=== PATIENT | female | born 1950 | race Caucasian/White ===

== ENCOUNTER → 2020-03-11 11:04 | Outpatient (CLI) | payer OTHER, SELFPAY ==
--- NOTE | ~2020-03-11 | MM_ITS ---
EXAMINATION: MM scrn kenroy implant BI w novlia HISTORY: Screening mammogram TECHNIQUE: Craniocaudal and mediolateral oblique 3-D tomosynthesis images with implant displacement a nd synthetic 2-D images were generated. Craniocaudal and mediolateral oblique views of the breasts wi thout implant displacement were obtained using full field digital mammography. CAD analysis was submi tted and interpreted. COMPARISON: 01/30/2019, 10/30/2018, 10/25/2016 BREAST PARENCHYMAL COMPOSITION: The breasts are almost entirely fatty. FINDINGS: There is no evidence of suspicious mass, calcification, or architectural distortion to sugg est malignancy in either breast. There has been no suspicious interval change. IMPRESSION: 1. No mammographic evidence of malignancy. 2. Recommend routine screening mammography in one year. BI-RADS Category 1: Negative Reviewed, dictated and finalized at location A.
== END ==
PROVIDERS: PCP Emergency Medicine; Visit Provider Nurse Practitioner
DX: Z12.31 Encounter for screening mammogram for malignant neoplasm of breast (principal)
CPT/HCPCS: 77063; 77067

== ENCOUNTER → 2020-05-01 15:13 | Outpatient (REF) | payer OTHER, SELFPAY | LOC: ANHLAB 15:13 | PROVIDERS: PCP Emergency Medicine; Visit Provider Surgery Plastic and Reconstructive Surgery | DX: L72.0 Epidermal cyst (principal) | CPT/HCPCS: 88304 ==

== ENCOUNTER → 2021-03-13 13:14 | Outpatient (CLI) | payer OTHER, SELFPAY ==
--- NOTE | ~2021-03-13 | MM_ITS ---
EXAMINATION: MM scrn kenroy implant BI w nolvia HISTORY: Screening mammogram TECHNIQUE: Craniocaudal and mediolateral oblique 3-D tomosynthesis images with implant displacement a nd synthetic 2-D images were generated. Craniocaudal and mediolateral oblique views of the breasts wi thout implant displacement were obtained using full field digital mammography. CAD analysis was submi tted and interpreted. COMPARISON: Comparison to multiple prior studies sequentially, with oldest reviewed study dated 10/23. BREAST PARENCHYMAL COMPOSITION: There are scattered areas of fibroglandular density. FINDINGS: There is no evidence of suspicious mass, calcification, or architectural distortion to sugg est malignancy in either breast. There has been no suspicious interval change. IMPRESSION: 1. No mammographic evidence of malignancy. 2. Recommend routine screening mammography in one year. BI-RADS Category 1: Negative Reviewed, dictated and finalized at location A.
== END ==
PROVIDERS: Visit Provider Nurse Practitioner
DX: Z12.31 Encounter for screening mammogram for malignant neoplasm of breast (principal)
CPT/HCPCS: 77063; 77067

== ENCOUNTER → 2021-05-13 13:16 | Outpatient (CLI) | payer OTHER, SELFPAY ==
--- NOTE | ~2021-05-13 | DEXA_ITS ---
Bone Density Report Name: AIYANA TYLER Age: 71 Sex: Female Ethnicity: White Date of : 1950 Indication: postmenopausal; screening for osteoporosis; height loss; Referring Provider: MEE LE Study: Bone densitometry was performed. Exam Date: May 13, 2021 Accession number: [id number] Bone Density: Region BMD T-score Z-score Classification AP Spine (L1, L2) 1.360 3.5 5.4 Normal World Health Organization criteria for BMD impression classify patients as: Normal (T-score at or above -1.0), Osteopenia (T-score between -1.0 and -2.5), or Osteoporosis (T-score at or below -2.5). Previous Exams: Region Exam Age BMD T-score BMD Change BMD Change Date g/cm2 vs Baseline vs Previous AP Spine(L1, L2) 05/13/2021 71 1.360 3.5 -0.037* -0.025* 11/08/2017 67 1.385 3.7 -0.012 -0.012 08/29/2012 62 1.397 3.8 *Denotes significance at 95% confidence level, LSC for AP Spine = 0.022 g/cm2 Clinical Information Provided by Patient: Has used the following medications: Vitamin D, Calcium Patient maximum height was 66 Menopause Age: 54 Drinks caffeinated beverages Onset of menses at age 11 Number of children 0 Impression: The patient has normal bone mass. The BMD for the AP Spine(L1, L2) decreased, changing by -0.025 since the last DXA exam. Discussion: LOW RISK OF FRACTURE; BONE DENSITY IS WELL ABOVE THE MINIMUM DESIRABLE LEVEL AND ABOVE AVERAGE FOR AGE AND SEX AT ALL SKELETAL SITES TESTED. This person's bone density is above expected limits for age and sex. This is rarely clinically significant, but should be pursued if there are significant musculoskeletal complaints. The patient should follow a healthful lifestyle (good nutrition with adequate calcium and vitamin D, and appropriate weight-bearing exercise). Follow-Up: Consider repeating this study in 3 to 4 years to reassess this patient's status, or sooner if there is some new clinical indication. Reported by: NICOLE on 05/13/2021 1:24:00 PM. Reviewed, dictated and finalized at location A. [facility]
== END ==
PROVIDERS: PCP Emergency Medicine; Visit Provider Emergency Medicine
DX: Z78.0 Asymptomatic menopausal state (principal)
CPT/HCPCS: 77080

== ENCOUNTER → 2021-12-10 14:09 | Outpatient (CLI) | payer OTHER, SELFPAY ==
--- NOTE | ~2021-12-10 | US_ITS ---
US thyroid INDICATION: Thyroid goiter TECHNIQUE: Real-time sonographic images of the thyroid gland were obtained. COMPARISON: No prior studies for comparison. FINDINGS: The right thyroid lobe measures 5.1 x 2.5 x 2.3 cm. The left thyroid lobe measures 6.5 x 3 x 2.5 cm. There is normal echotexture and echogenicity throughout the thyroid gland. There are multi ple bilateral thyroid nodules. There is normal vascularity. Largest dominant nodule in the right lobe measures 6 x 6 x 4 mm which is solid, hypoechoic with macrocalcifications and posterior shadowing. I ll-defined margins. Mass is wider than tall, TR 4 classification. This mass does not meet sonographic criteria for biopsy. In the left lobe there is a complex mixed solid and cystic mass which is slight ly hypoechoic measuring 2.5 x 2.4 x 1.6 cm, wider than tall, irregular margins without associated raj cification, TR 4. Multiple additional smaller masses are identified in both lobes, most likely multin odular goiter. IMPRESSION: 1. Complicated left thyroid mass measuring up to 2.5 cm, TR 4. Ultrasound-guided fine-needle aspirat ion biopsy recommended. Reviewed, dictated and finalized at location A. IMPRESSION: 1. Complicated left thyroid mass measuring up to 2.5 cm, TR 4. Ultrasound-guid ed fine-needle aspiration biopsy recommended.
== END ==
PROVIDERS: PCP Emergency Medicine; Visit Provider Emergency Medicine
DX: E04.9 Nontoxic goiter, unspecified (principal)
CPT/HCPCS: 76536

== ENCOUNTER 2021-12-25 09:08 | Outpatient (CLI) | payer OTHER, SELFPAY ==
--- NOTE | ~2021-12-25 | US_ITS ---
EXAMINATION: US FNA w image guidance DATE: 12/25/2021 10:35 INDICATION: Disorder of thyroid, unspecified. TECHNIQUE: The procedure and its benefits and risks were discussed with the patient. Risks specifically discusse d included bleeding. The patient verbalized understanding of the risks and agreed to proceed. The nec k was prepped and draped in the usual sterile manner. 1% lidocaine was used for local anesthesia. 6 passes were made with a 25G needle into the lesion under ultrasound guidance. There were no immedia te complications. FINDINGS: Grayscale ultrasound images demonstrate needles advanced into a 2.5 cm left thyroid nodule for biopsy . IMPRESSION: 1. Ultrasound-guided fine needle aspiration of a left thyroid nodule. Reviewed, dictated and finalized at location A.
== END 2021-12-25 09:09 | disposition home or self-care (01) ==
PROVIDERS: PCP Emergency Medicine; Visit Provider Emergency Medicine
DX: E07.9 Disorder of thyroid, unspecified (principal)
CPT/HCPCS: 10005; 88173; 88305

== ENCOUNTER → 2022-03-15 10:39 | Outpatient (CLI) | payer OTHER, SELFPAY ==
--- NOTE | ~2022-03-15 | MM_ITS ---
EXAMINATION: MM scrn kenroy implant BI w nolvia HISTORY: Screening mammogram TECHNIQUE: Craniocaudal and mediolateral oblique 3-D tomosynthesis images with implant displacement a nd synthetic 2-D images were generated. Craniocaudal and mediolateral oblique views of the breasts wi thout implant displacement were obtained using full field digital mammography. CAD analysis was submi tted and interpreted. COMPARISON: 03/13/2021, 03/11/2020, 01/30/2019 BREAST PARENCHYMAL COMPOSITION: The breasts are almost entirely fatty. FINDINGS: There is no evidence of suspicious mass, calcification, or architectural distortion to sugg est malignancy in either breast. There has been no suspicious interval change. IMPRESSION: 1. No mammographic evidence of malignancy. 2. Recommend routine screening mammography in one year. BI-RADS Category 1: Negative Reviewed, dictated and finalized at location A.
== END ==
PROVIDERS: PCP Emergency Medicine; Visit Provider Nurse Practitioner
DX: Z12.31 Encounter for screening mammogram for malignant neoplasm of breast (principal)
CPT/HCPCS: 77063; 77067

== ENCOUNTER 2023-01-03 08:00 | Outpatient (NON) | payer OTHER, SELFPAY | END 2023-01-03 08:01 | disposition home or self-care (01) | LOC: ANHLAB 01-05 13:23 | PROVIDERS: PCP Emergency Medicine; Visit Provider Nurse Practitioner | DX: D49.2 Neoplasm of unspecified behavior of bone, soft tissue, and skin (principal) | CPT/HCPCS: 88305 ==

== ENCOUNTER → 2023-04-15 11:09 | Outpatient (CLI) | payer OTHER, SELFPAY ==
--- NOTE | ~2023-04-15 | MM_ITS ---
EXAMINATION: MM scrn kenroy implant BI w nolvia HISTORY: Screening mammogram TECHNIQUE: Craniocaudal and mediolateral oblique 3-D tomosynthesis images with implant displacement a nd synthetic 2-D images were generated. Craniocaudal and mediolateral oblique views of the breasts wi thout implant displacement were obtained using full field digital mammography. CAD analysis was submi tted and interpreted. COMPARISON: 03/15/2022, 03/13/2021, 03/11/2020 BREAST PARENCHYMAL COMPOSITION: The breasts are almost entirely fatty. FINDINGS: There is no evidence of suspicious mass, calcification, or architectural distortion to sugg est malignancy in either breast. There has been no suspicious interval change. IMPRESSION: 1. No mammographic evidence of malignancy. 2. Recommend routine screening mammography in one year. BI-RADS Category 1: Negative Reviewed, dictated and finalized at location A.
== END ==
PROVIDERS: PCP Nurse Practitioner; Visit Provider Nurse Practitioner
DX: Z12.31 Encounter for screening mammogram for malignant neoplasm of breast (principal)
CPT/HCPCS: 77063; 77067

== ENCOUNTER → 2023-05-19 12:10 | Outpatient (CLI) | payer OTHER, SELFPAY ==
--- NOTE | ~2023-05-19 | DEXA_ITS ---
Bone Density Report Name: AIYANA TYLER Age: 73 Sex: Female Ethnicity: White Date of : 1950 Indication: postmenopausal; screening for osteoporosis; parental hip fracture; height loss; Referring Provider: Kael, Lee Ann Study: Bone densitometry was performed. Exam Date: May 19, 2023 Accession number: [id number] Bone Density: Region BMD T-score Z-score Classification AP Spine (L1, L2) 1.344 3.3 5.4 Normal World Health Organization criteria for BMD impression classify patients as: Normal (T-score at or above -1.0), Osteopenia (T-score between -1.0 and -2.5), or Osteoporosis (T-score at or below -2.5). Previous Exams: Region Exam Age BMD T-score BMD Change BMD Change Date g/cm2 vs Baseline vs Previous AP Spine(L1, L2) 05/19/2023 73 1.344 3.3 -0.053* -0.016 05/13/2021 71 1.360 3.5 -0.037* -0.025* 11/08/2017 67 1.385 3.7 -0.012 -0.012 08/29/2012 62 1.397 3.8 *Denotes significance at 95% confidence level, LSC for AP Spine = 0.022 g/cm2 Clinical Information Provided by Patient: Parent has had a hip fracture Has used the following medications: Vitamin D, Calcium, MTV Patient maximum height was 66.0 Menopause Age: 54 Drinks caffeinated beverages Onset of menses at age 11 Number of children 0 Impression: The patient has normal bone mass. The patient has risk factors, including: parental hip fracture. No significant bone loss was observed. Discussion: LOW RISK OF FRACTURE; BONE DENSITY IS WELL ABOVE THE MINIMUM DESIRABLE LEVEL AND ABOVE AVERAGE FOR AGE AND SEX AT ALL SKELETAL SITES TESTED. This person's bone density is above expected limits for age and sex. This is rarely clinically significant, but should be pursued if there are significant musculoskeletal complaints. The patient should follow a healthful lifestyle (good nutrition with adequate calcium and vitamin D, and appropriate weight-bearing exercise). Follow-Up: Consider repeating this study in 5 years or sooner if there is some new clinical indication. Reported by: [facility] on 05/19/2023 12:25:00 PM. Reviewed, dictated and finalized at location AKeo ERAZO
== END ==
PROVIDERS: PCP Emergency Medicine; Visit Provider Nurse Practitioner
DX: Z78.0 Asymptomatic menopausal state (principal); Z13.820 Encounter for screening for osteoporosis
CPT/HCPCS: 77080

== ENCOUNTER 2024-02-06 05:51 | Day surgery (SDC) | payer OTHER, SELFPAY ==
[2023-10-19 14:38] VITALS: BMI 28.0
[2024-01-20 14:17] VITALS: BMI 28.3
--- NOTE | 2024-01-31 11:17 | PM.HPGS ---
History of Present Illness History of Present Illness Consent: Risks, benefits, and alternatives have been discussed and questions answered. Patient agrees to proceed with procedure. Chief complaint: Family History of Colon Polyps Narrative: Marisela Quan is a 73 year old female Who's mother and sister have both had polyps. Review of Systems Review of Systems: All systems reviewed & are unremarkable except as noted in HPI and below PMFSH Past Medical History Medical History Anemia Body mass index [BMI] 27.0-27.9, adult (01/12/18) Body mass index [BMI] 29.0-29.9, adult (03/07/17) Disorders of bursae and tendons in shoulder region, unspecified Encounter for cosmetic surgery Encounter for screening for cardiovascular disorders H/O sebaceous cyst Impacted cerumen of both ears Iron deficiency Keratosis Left knee pain Primary osteoarthritis of both hips Tendinitis of right rotator cuff Tendinitis of right shoulder Surgical History Surgical History History of bilateral hip replacements 2014 History of plastic surgery Bilateral Brachioplasty 2019 Family History Family History Father Patient's father is in good health Mother Family history of diabetes mellitus in first degree relative Diabetes mellitus Family history of cardiovascular disease Family history of kidney disease Other Cerebrovascular accident Social History Social History Smoking status: Former smoker Tobacco type: cigarettes Alcohol intake: current Drinks per week: 1 Substance use: never Substance use type: does not use Do You Feel Safe in your Home?: Yes Lack of Transportation: No Lack of Food: Never True Current Housing: I Have Housing Concerned About Future Housing: No Difficulty Paying Gas/Electric Bills: No Difficulty Paying for Meds: No Currently Unemployed: No Education: High School Diploma/GED Difficulty w/ Childcare or Family Care: No Living arrangements: with family Spiritual care concerns: No Meds Home Medications and Allergies Home Medications Medication Instructions Recorded Confirmed Type ascorbate calcium (vitamin C) 500 500 mg PO DAILY 05/21/19 02/06/24 History mg tablet omega-3 fatty acids 1,000 mg 1,000 mg PO DAILY 05/21/19 02/06/24 History capsule (Fish Oil Concentrate) bufjyrdq-oxs-vaccp ac 400 1 tablet PO .daily 07/23/19 02/06/24 History mcg-calcium carb 500 mg-vit K1 20 mcg tablet (Women's 50 Plus Daily Formula) cholecalciferol (vitamin D3) 25 2,000 unit PO DAILY 05/29/21 02/06/24 History mcg (1,000 unit) capsule calcium carbonate 600 mg PO DAILY 08/29/23 02/06/24 History ferrous sulfate 325 mg (65 mg 325 mg PO DAILY 08/29/23 02/06/24 History iron) tablet,delayed release yeast 500 mg (7.5 gr) tablet 500 mg PO DAILY 08/29/23 02/06/24 History Allergies Allergy/AdvReac Type Severity Reaction Status Date / Time No Known Allergies Allergy Verified 02/06/24 06:16 Exam Resp: Auscultation: clear to auscultation bilaterally Cardio: Rate: regular rate Rhythm: regular rhythm GI: GI Palp: Yes Soft to palpation and No Tenderness to palpation present (GI) Assessment and Plan Assessment and plan (1) Family history of colonic polyps: Code(s): Z83.719 - Family history of colon polyps, unspecified Status: Acute Assessment and Plan: Colonoscopy with possible biopsy or polypectomy or cautery or injection of substances.
[2024-02-06 06:18] VITALS: BMI 28.4
[2024-02-06 06:19] VITALS: BP 117/83; PULSE 49; RESP 18; TEMP 36.9; O2SAT 100
--- NOTE | 2024-02-06 06:51 | WPDANESEPPF ---
Anes - Initial Pre Proc Eval Procedure: Operation Date: 02/06/24 07:30 Proposed Procedures p Diagnostic Colonoscopy - Bk Shaw MD Date/Time: 02/06/24 06:51 Surgeon: Bk Shaw MD Pre Op Diagnosis: Family History of Colon Polyps Patient Data Age: 73 Gender: F Height: 1.63 m Weight: 75.1 kg Last Vital Signs Temp 36.9 C 02/06/24 06:19 Pulse 49 L 02/06/24 06:19 Resp 18 02/06/24 06:19 BP 117/83 02/06/24 06:19 Pulse Ox 100 02/06/24 06:19 O2 Del Method Room Air 02/06/24 06:19 Allergies Allergy/AdvReac Type Severity Reaction Status Date / Time No Known Allergies Allergy Verified 02/06/24 06:16 Home Medications Medication Instructions Recorded Confirmed Type ascorbate calcium (vitamin C) 500 500 mg PO DAILY 05/21/19 02/06/24 History mg tablet omega-3 fatty acids 1,000 mg 1,000 mg PO DAILY 05/21/19 02/06/24 History capsule (Fish Oil Concentrate) wrphouma-atz-manmh ac 400 1 tablet PO .daily 07/23/19 02/06/24 History mcg-calcium carb 500 mg-vit K1 20 mcg tablet (Women's 50 Plus Daily Formula) cholecalciferol (vitamin D3) 25 2,000 unit PO DAILY 05/29/21 02/06/24 History mcg (1,000 unit) capsule calcium carbonate 600 mg PO DAILY 08/29/23 02/06/24 History ferrous sulfate 325 mg (65 mg 325 mg PO DAILY 08/29/23 02/06/24 History iron) tablet,delayed release yeast 500 mg (7.5 gr) tablet 500 mg PO DAILY 08/29/23 02/06/24 History Patient hx anesthesia problems: none Family hx anesthesia problems: none Results Review: All pre-operative results and documents have been reviewed as part of the pre-operative evaluation. [facility] Past Medical History Medical History Anemia Body mass index [BMI] 27.0-27.9, adult (01/12/18) Body mass index [BMI] 29.0-29.9, adult (03/07/17) Disorders of bursae and tendons in shoulder region, unspecified Encounter for cosmetic surgery Encounter for screening for cardiovascular disorders H/O sebaceous cyst Impacted cerumen of both ears Iron deficiency Keratosis Left knee pain Primary osteoarthritis of both hips Tendinitis of right rotator cuff Tendinitis of right shoulder Surgical History Surgical History History of bilateral hip replacements 2013 History of plastic surgery Bilateral Brachioplasty 2019 Family History Family History Father Patient's father is in good health Mother Family history of diabetes mellitus in first degree relative Diabetes mellitus Family history of cardiovascular disease Family history of kidney disease Other Cerebrovascular accident Social History Social History Smoking status: Former smoker Tobacco type: cigarettes Alcohol intake: current Drinks per week: 1 Substance use: never Substance use type: does not use Do You Feel Safe in your Home?: Yes Lack of Transportation: No Lack of Food: Never True Current Housing: I Have Housing Concerned About Future Housing: No Difficulty Paying Gas/Electric Bills: No Difficulty Paying for Meds: No Currently Unemployed: No Education: High School Diploma/GED Difficulty w/ Childcare or Family Care: No Living arrangements: with family Spiritual care concerns: No Anes - Eval Final PreProcedure Day of Procedure 02/06/24 06:51 Patient weight: overweight Heart: regular rate and rhythm Lungs: clear to auscultation Airway: Mallampati scale class II Neurological: alert and oriented Last oral intake: >/= 8 hours ASA classification: II Emergent: no Anesthetic plan: proceed Anesthesia type and monitoring: general GIVS and standard monitoring Results Review: All pre-operative results and documents have been reviewed as part of the pre-operative evaluation. Informed Consent: The patient'
[2024-02-06] MEDS: LACTATED RINGERS 1,000 ML 150 ML IV CONT (07:19)
[2024-02-06] MEDS: SIMETHICONE ORAL SUSPENSION 20 MG/0.3 ML 30 ML BOTTLE 0.6 ML IRRIGATION (07:27)
[2024-02-06 07:42] VITALS: BP 93/47; PULSE 48; RESP 16; O2SAT 99
[2024-02-06 07:52] VITALS: BP 107/63; PULSE 43; RESP 16; O2SAT 100
[2024-02-06 08:02] VITALS: BP 114/67; PULSE 47; RESP 16; O2SAT 100
--- NOTE | 2024-02-06 11:12 | WPDANESPN ---
Anes - Prog Note Post-Op Date/Time: 02/06/24 11:12 Cardiovascular status: normal Respiratory status: normal Airway patency: baseline Mental status: baseline Post-Op hydration status: normal Vital Signs: Last Vital Signs Temp 36.9 C 02/06/24 06:19 Pulse 47 L 02/06/24 08:02 Resp 16 02/06/24 08:02 BP 114/67 02/06/24 08:02 Pulse Ox 100 02/06/24 08:02 O2 Del Method Room Air 02/06/24 08:02 Pain Score (VAS): 0 I/O: Intake & Output 02/05/24 02/06/24 02/06/24 23:59 07:59 15:59 Intake Total 300 50 Balance 300 50 Post-procedural complaints: none Patient Feedback: Patient satisfied with anesthetic care. Other Findings: Patient vital signs back to baseline. Patient denies nausea and vomiting. Patient's pain under control. Patient OK for discharge.
== END 2024-02-06 08:09 | disposition home or self-care (01) ==
PROVIDERS: PCP Emergency Medicine; Visit Provider Internal Medicine Gastroenterology
PROC: 0DJD8ZZ Inspection of Lower Intestinal Tract, Via Natural or Artificial Opening Endoscopic (ICD-10-PCS; CPT 45378; principal; 2024-02-06 07:30)
DX: Z83.718 Family history of other colon polyps (principal); Z12.11 Encounter for screening for malignant neoplasm of colon; K64.8 Other hemorrhoids
CPT/HCPCS: 45378

== ENCOUNTER 2024-06-28 13:44 | Outpatient (CLI) | payer OTHER, SELFPAY ==
--- NOTE | ~2024-06-28 | MM_ITS ---
EXAMINATION: MM scrn kenroy implant BI w nolvia HISTORY: Screening mammogram TECHNIQUE: Craniocaudal and mediolateral oblique 3-D tomosynthesis images with implant displacement a nd synthetic 2-D images were generated. Craniocaudal and mediolateral oblique views of the breasts wi thout implant displacement were obtained using full field digital mammography. CAD analysis was submi tted and interpreted. COMPARISON: Comparison to multiple prior studies sequentially, with oldest reviewed study dated 11/08. BREAST PARENCHYMAL COMPOSITION: Not dense: There are scattered areas of fibroglandular density. FINDINGS: There is no evidence of suspicious mass, calcification, or architectural distortion to sugg est malignancy in either breast. There has been no suspicious interval change. IMPRESSION: 1. No mammographic evidence of malignancy. 2. Recommend routine screening mammography in one year. BI-RADS Category 1: Negative Reviewed, dictated and finalized at location A. [employer]
== END 2024-06-28 13:45 | disposition home or self-care (01) ==
PROVIDERS: PCP Emergency Medicine; Visit Provider Nurse Practitioner
DX: Z12.31 Encounter for screening mammogram for malignant neoplasm of breast (principal); Z98.82 Breast implant status
CPT/HCPCS: 77063; 77067

== ENCOUNTER 2025-06-12 13:20 | Outpatient (CLI) | payer OTHER, SELFPAY ==
--- OUTSIDE RECORDS SUMMARY | 2025-06-12 13:25 | XMS_ITS ---
Author Name Sugar Saumya MARQUEZ Address [address] [place] [address] Phone [phone] Organization [facility] ([facility]) Care Team Providers Care Family Court Justice Name Role Phone Saumya Wooten Unavailable [phone] MEE EL Unavailable [phone] Reason for Referral Not Available Allergies, adverse reactions, alerts No known allergies History of medication use Medication Class Instructions Start Date End Date Amoxicillin 500 mg Tab TAKE 1 TABLET BY MOUTH 3 TIMES A DAY UNTIL GONE 2024-05-03 No Data Available Albuterol Sulfate HFA 108 (90 Base) MCG/ACT Aerosol Solution INHALE 1-2 PUFFS EVERY 4-6 HOURS NEEDED FOR WHEEZING FOR 10 DAYS 2024-05-31 2024-10-18 Benzonatate 200 mg Cap TAKE 1 CAPSULE BY MOUTH THREE TIMES A DAY FOR 10 DAYS 2024-05-31 No Data Available Doxycycline Hyclate 100 mg Cap TAKE 1 CAPSULE BY MOUTH TWICE A DAY FOR 10 DAYS 2024-05-31 No Data Available predniSONE 20 mg Tab TAKE 2 TABLETS BY M OUTH EVERY DAY FOR 5 DAYS 2024-05-31 2024-10-18 Calcium Citrate 250 mg Tab No Data Available 8 No Data Available Vitamin D3 1.25 mg (90264 UT) Cap No Data Available 2024-10-18 No Data Available Vitamin C 500 mg Tab Chewable No Data Available 2024-10-18 No Data Available Fish Oil 500 mg Cap No Data Available 2024-10-18 No Data Available Brewers Yeast 487.5 mg Tab No Data Available 8 No Data Available Iron 325 (65 Fe) MG Tab No Data Available 2024-10-18 No Data Available S[employer] Senior Tab No Data Available 2024-10-18 No Da ta Available Problem List No known problems Encounters Encounters Type Facility Date of Service Diagnosis/Co mplaint Outpatient visit for evaluation and management of new patient, including medically appropriate examination and low level of medical decision making, total time 30-44 minutes [facility] [place] 10/18/2024 Radiculopathy, site unspecified Immunizations Vaccine Date Status Influenza, brand unknown 2024-03-15 Complet e SARS-COV-2 (COVID-19) vaccine, UNSPECIFIED 03-15 Complete Pneumococcal conjugate PCV 15 or PCV 20 Complete Shingrix Intramuscular Suspe nsion Reconstituted 50 MCG/0.5ML (ZOS) 2018-08-02 Complete Respiratory syncytial virus (RSV) vaccine, unspe cified 2023-03-16 Complete Social History Social History Social History Observation Description Effec tive Time Current Smoking Status Former smoker 2025-05-15 1 Sex Female History of Procedures Procedures Service Procedure code Service date Servicing provider Phone# Outpatient visit for evaluation and management of new patient, including medically appropriate examination and low level of medical decision making, total time 30-44 minutes [id number] 2024-10-18 No Data Available No Data Availa ble Functional Status No Information Mental Status No Information Assessments Date of Service Assessments 2024-10-18 08:30:00 Acute low back pain with radicular symptoms, duration less than 6 weeks Plan of Care Date of Service Plans 2024-10-18 08:30:00 contact PCPRequest l umbar x-ray and MRIRequest referral to neurosurgery Health Concerns Date Concern 2024-10-18 This visit was provi ded through telemedicinePatient verbally provided informed consent for this visit to be conducted via telemedicineLocation of patient: [place] of clinician: [place] participating in telemedicine service and their role in the encounter: Marisela Quan - ptKeo Wooten - provider 2024-10-18 [facility] Call[facility] is a service that involves a physician or advanced practice provider conducting comprehensive assessments in your patient s home or virtually to address crucial areas such as chronic conditions, quality gaps, social concerns, fall risk prevention, and various screenings. Please note that your patient will remain attributed to you even though they are participating in this service. If you have any questions, please reach out directly to our team at the phone number above.Your patient, Marisela Quan 54, was seen today for a Healthy House Call visit. Patient read rights and responsibilities and consented to treatment. The purpose of this summary is to update you on the patient's current health status and share any relevant findings from the examination. 2024-10-18 This patient is a pl easant 74F who lives with her in a single-family home.. Patient reports has been in their usual state of health with no complaints at at this time. Confirms the ability perform all ADLs without assistance. Mentions low back pain, especially upon waking - causing pain with ambulation. Adv to contact PCP RE: lumbar x-ray/MRI and poss referral to neursurgery for add l workup 2024-10-18 Recommendations: Req uest lumbar MRI and referral to neurosurgeon for add'l workup on lumbar pain
--- OUTSIDE RECORDS SUMMARY | 2025-06-12 13:26 | XMS_ITS | Clinical Summary ---
Author Organization [facility] [employer] Address [address] [place] [address] Care Team Providers Care Provider Education Specialist Name Role Phone Unavailable Primary Care Provider Unavailabl e Source Comments [facility] [employer] [facility],non-owned Affiliates and Associated Physician Practices is amultiple site organization consisting of ambulatory clinics and hospital sitesin [place], [place], [place] and [place]. This disclosure is being madepursuant to the Care Everywhere program and may not contain all information available regarding this patient. Last updated 18.[facility] [employer] [facility] Allergies No known active allergies Medications * Be aware that medications may not be up to date on this document. Alwaysverify current medications with the patient. multivitamins (ONE A DAY) capsule Take 1 Cap by mouth once daily. Active Fish Oil-Cholecalcife rol (FISH OIL + D3) 1404-8854 MG-UNIT CAPS Take by mouth. Active Calcium Carb-Cholecalcif emily (CALCIUM 600 + D PO) Take by mouth. Active Ascorbic Acid (VITAMIN C PO) Take by mouth. Active magnesium 250 MG TABS tablet Take 250 mg by mouth once daily. Active Family History Relation Name Status Comments Brother Alive Father Alive Mother Alive Social History Tobacco Use Types Packs/Day Years Used Date Smoking Tobacco: Former Cigarettes 3 20 0 06/13/1982 - 06/13/2002 Alcohol Use Standard Drinks/Week Comments Yes 1.7 (1 standard drink = 0.6 oz p ure alcohol) Comments Unknown Sex and Gender Information Value Date Recorded Sex Assigned at Not on file Legal Sex Female 2:05 PM CDT Gender Identity Not on file Sexual Orientation Not on file Occupation Industry Job Start Date Job End Date RETIRED Not on file Not on file Not on file Last Filed Vital Signs Vital Sign Reading Time Taken Comments Blood Pressure - - Pulse - - Temperature - - Respiratory Rate - - Oxygen Saturation - - Inhaled Oxygen Concentration - - Weight 81.6 kg (180 lb) 11/11/2014 12:26 PM CDT Height 165.1 cm (5' 5) 11/11/2014 12:26 PM CDT Body Mass Index 29.95 11/11/2014 12:26 PM CDT Plan of Treatment Health Maintenance Due Date Last Done Comments BONE DENSITY TESTING 1952 COLOGUARD (AGES 45-75) - COL ON CA SCREENING 1952 COLON MONITORING 1952 COLONOSCOPY - COLON CA SCREENING 1952 CT COLONOGRAPHY - COLON CA SCREENING 1952 Colorectal Cancer Screening 1952 FIT - COLON CA SCREENING 1952 FLEX SIG - COLON CA SCREENING 1952 LIPID TESTING 1952 MAMMOGRAM 1952 HEPATITIS C SCREENING 02/26/1970 DTAP/TDAP/TD VACCINES (1 - Tdap) 1971 PNEUMOCOCCAL VACCINE 50+ (1 of 1 - PCV) 2002 ZOSTER VACCINE (1 of 2) 2002 DEPRESSION SCREENING 06/13/2024 COVID-19 VACCINE (1 - 2024-2 6 season) 2025 INFLUENZA VACCINE (#1) 2025 Respiratory Syncytial Virus (RSV) Vaccine Pt: or over 60 yrs (1 - 1-dose 75+ series) 2027 HEPATITIS B VACCINE Aged Out No longe r eligible based on patient's age to complete this topic HIB VACCINE Aged Out No longer eligi ble based on patient's age to complete this topic HPV VACCINE Aged Out No longer eligi ble based on patient's age to complete this topic MENINGOCOCCAL (Group B) VACC INE SHARED DECISION-MAKING Aged Out No longer eligibl e based on patient's age to complete this topic MENINGOCOCCAL GROUPS A/C/Y/W VACCINE Aged Out No longer eligible b ased on patient's age to complete this topic Insurance [facility] [employer]
[2025-06-12 13:49] LABS: Hematocrit 39.9 % (37.0-47.0); Hemoglobin 12.8 g/dL (12.0-15.0)
== END 2025-06-12 13:21 | disposition home or self-care (01) ==
LOC: ANHLAB 13:23
PROVIDERS: Anesthesiology; PCP Emergency Medicine; Visit Provider Urology
DX: N36.42 Intrinsic sphincter deficiency (ISD) (principal); D64.9 Anemia, unspecified; Z01.818 Encounter for other preprocedural examination
CPT/HCPCS: 36415; 85014; 85018; 87086